=== PATIENT | female | born 1970 | race Two or more races ===

== ENCOUNTER 2022-06-12 08:52 | Emergency (ER) | payer OTHER ==
[~2022-06-12] VITALS: Ht 160 cm; Wt 100.0 kg
[2022-06-12 08:53] VITALS: BP 110/70
[2022-06-12] MEDS ORDERED: EPINEPHrine HCL 1 MG/10 ML SYRG IV ONE (08:53)
[2022-06-12] MEDS ORDERED: SODIUM BICARBONATE 8.4% INJ 50ML SYRINGE IV ONE (08:53)
[2022-06-12] MEDS ORDERED: DOPamine 1600mCg/ml 400MG/250ml NSorD5 KIT/BAG IV ONE (08:53)
[2022-06-12] MEDS ORDERED: CALCIUM CHLOR(10%) 100MG/ML 10ML SYRINGE IV ONE (08:53)
[2022-06-12] MEDS ORDERED: ALTEPLASE (RECOMBINANT) 100 MG in STERILE WATER 100 ML IV ONE (09:15)
[2022-06-12] MEDS ORDERED: EPINEPHrine HCL 1 MG/10 ML SYRG ONE ×2 (09:16→09:27)
[2022-06-12] MEDS ORDERED: HEPARIN DRIP/D5W 100UNITS/ML 250 ML IV SCH (11:15)
== END 2022-06-12 10:21 ==
LOC: ER 08:52 → EDUNIT# 08:52 → EDBD 08:52 → ER 10:21
DX: I46.9 Cardiac arrest, cause unspecified (principal); I10 Essential (primary) hypertension
CPT/HCPCS: 31500; 36556; 92950; 93005; 99291; J0171; J1265; J2997